=== PATIENT | female | born 1995 | race Two or more races ===

== ENCOUNTER 2025-05-21 14:58 | Emergency (ER) | payer MEDICAID, OTHER ==
[~2025-05-21] VITALS: Ht 152.4 cm; Wt 68.1 kg
--- NOTE | 2025-05-21 15:45 | ED.PDOC ---
History of Present Illness HPI Comments 29-year-old female with a past medical history of coarctation of aorta, hypertension and insulin dependent type 2 diabetes mellitus, has come to the ER with chief complaints of high blood pressure. Patient reports that she visited her PCP today morning for a follow up visit regarding her diabetes but was told upon arrival that her blood pressure was very high and to visit the ER. On inquiry, patient states that she was told her first BP reading was 176/90 mmHg, but was not told the second reading, just that it was higher than the first and to visit the ER. On inquiry, patient states that she has had a occipital headache since yesterday, 02/21 in intensity, nonradiating with no aggravating or relieving factors. On inquiry patient also states that she did not take her blood pressure medication amlodipine 10 mg and lisinopril 40 mg yesterday evening as she forgot and has not taken the medication today either. She denies any blurry vision, dizziness, shortness of breath, ringing of ears, chest pain, nausea, vomiting, urinary symptoms or any stressors at home or work. On arrival, blood pressure was 178/107 mmHg. Chief Complaint: High Blood Pressure Time Seen by MD: 15:05 Reviewed Notes: Medications, Allergies Allergies: Coded Allergies: NO KNOWN ALLERGIES (Unverified , 05/21/25) Information Source: Patient Mode of Arrival: Ambulatory Severity: Mild Timing: Hours Duration: Since onset Prehospital treatment: None Past Medical History PAST MEDICAL HISTORY: DM, HTN Past Medical History (Other): Coarctation of aorta Surgical History (Other): Surgery for coarctation of aorta, stent placed RN HYPERBARIC History: Denies all RN HYPERBARIC Hx Family History Family History: Reviewed,noncontributory to illness Social History Smoker: Non-Smoker Alcohol: Denies ETOH Use Drugs: Denies Drug Use Lives In: Home Constitutional: reports: others (Occipital Headache); denies: chills, diaphoresis, fatigue, fever, malaise, sweats, weakness EENTM: denies: blurred vision, double vision, ear bleeding, ear discharge, ear drainage, ear pain, ear ringing, eye pain, eye redness, hearing loss, mouth p ain, mouth swelling, nasal discharge, nose bleeding, nose congestion, nose pain, photophobia, tearing, throat pain, throat swelling, voice changes, others Respiratory: denies: cough, hemoptysis, orthopnea, SOB at rest, shortness of br eath, SOB with excertion, stridor, wheezing, others Cardiovascular: denies: chest pain, dizzy spells, diaphoresis, Dyspnea on exertion, edema, irregular heart beat, left arm pain, lightheadedness, palpitations, PND, syncope, others Gastrointestinal: denies: abdomen distended, abdominal pain, blood streaked bowels, constipated, diarrhea, dysphagia, difficulty swallowing, hematemesis, melena, nausea, poor appetite, poor fluid intake, rectal bleeding, rectal pain, vomiting, others Genitourinary: denies: abnormal vagina bleeding, burning, dyspareunia, dysuria, flank pain, frequency, hematuria, incontinence, pain, , vagina discharge, urgency, others Neurological: denies: dizziness, fainting, headache, left sided numbness, left sided weakness, numbness, paresthesia, pre-existing deficit, right sided numbness, right sided weakness, seizure, speech problems, tingling, tremors, weakness, others Musculoskeletal: denies: back pain, gout, joint pain, joint swelling, muscle pain, muscle stiffness, neck pain, others Integumetry: denies: bruises, change in color, change in hair/nails, dryness, laceration, lesions, lumps, rash, wounds, others Allergic/Immunocompromised: denies: Difficulty Healing, Frequent Infections, Hives, Itching, others Hematologic/Lymphatic: denies: anemia, blood clots, easy bleeding, easy bruising, swollen glands, others Endocrine: denies: excessive hunger, excessive sweating, excessive thirst, excessive urination, flushing, intolerance to cold, intolerance to heat, unexplained weight gain, unexplained weight loss, others Psychiatric: denies: anxiety, bipolar disorder, depression, hopeless, panic disorder, schizophrenia, sleepless, suicidal, others Physical Exam General Appearance: Normal HEENT: Normal ENT Inspection Neck: Full Range of Motion, Non-Tender, Normal Respiratory: No Accessory Muscle Use, No Respiratory Distress, Normal Breath Sounds, Other (No rhonchi, stridor or wheezing heard) Cardiovascular: No Edema, No JVD, No Murmur, Tachycardia Breast Exam: Deferred Gastrointestinal: No Organomegaly, Non Tender, No Pulsatile Mass, Normal Bowel Sounds Genitalia: Deferred Pelvic: Deferred Rectal: Deferred Extremities: No calf tenderness, Normal inspection, Normal range of motion, Non-tender, No pedal edema Neurologic: Alert, No Motor Deficits, No Sensory Deficits Cerebellar Function: Normal Reflexes: Normal Skin: Normal Color Lymphatic: Other (No cervical lymphadenopathy) Was a procedure done? Was a procedure done?: No Differential Dx Considerations may include: Hypertension, tension headache X-Ray, Labs, Meds, VS Vital Signs Date Time Temp Pulse Resp B/P (MAP) Pulse Ox O2 Delivery O2 Flow Rate FiO2 05/21/25 16:57 140/78 05/21/25 16:49 91 16 140/78 (98) 98 05/21/25 16:09 156/103 05/21/25 16:02 98.8 98 16 156/103 (120) 96 98.8 05/21/25 16:02 Room Air* 0 21 05/21/25 14:59 98.7 98 16 178/107 98 98.7 Lab Test 05/21/25 16:46 05/21/25 15:35 Range/Units POC Glucose 357 H 70-106 mg/dl White Blood Count 8.0 4.4-10.8 10^3/uL Red Blood Count 4.59 4.0-5.20 10^6/uL Hemoglobin 13.4 12.2-16.2 g/dL Hematocrit 37.4 36.0-46.0 % Mean Corpuscular Volume 81.5 80.0-100.0 fL Mean Corpuscular Hemoglobin 29.2 28.0-32.0 pg Mean Corpuscular Hemoglobin Concent 35.8 32.0-36.0 g/dL Red Cell Distribution Width 12.2 11.8-14.3 % Platelet Count 379 140-450 10^3/uL Mean Platelet Volume 6.8 L 6.9-10.8 fL Neutrophils (%) (Auto) 61.1 37.0-80.0 % Lymphocytes (%) (Auto) 31.5 10.0-50.0 % Monocytes (%) (Auto) 3.3 0.0-12.0 % Eosinophils (%) (Auto) 3.3 0.0-7.0 % Basophils (%) (Auto) 0.8 0.0-2.0 % Neutrophils # (Auto) 4.9 1.6-8.6 10 ^3/uL Lymphocytes # (Auto) 2.5 0.4-5.4 10 ^3/uL Monocytes # (Auto) 0.3 0-1.3 10 ^3/uL Eosinophils # (Auto) 0.3 0-0.8 10 ^3/uL Basophils # (Auto) 0.1 0-0.2 10 ^3/uL Nucleated Red Blood Cells 0.0 % Sodium Level 135 L 136-145 mmol/L Potassium Level 4.1 3.5-5.1 mmol/L Chloride Level 101 98-107 mmol/L Carbon Dioxide Level 26 20-31 mmol/L Anion Gap 8 5-15 Blood Urea Nitrogen 25 H 9-23 mg/dL Creatinine 0.81 0.550-1.02 mg/dL Glomerular Filtration Rate Calc 99 >90 mL/min BUN/Creatinine Ratio 30.9 H 10.0-20.0 Serum Glucose 343 H 74-106 mg/dL Calcium Level 8.9 8.7-10.4 mg/dL Current Medications Medications (Trade) Dose Ordered Sig/Nathan Route Start Time Stop Time Status Last Admin Clonidine HCl (Catapres Tablet) 0.1 mg ONCE ONCE PO 05/21/25 15:30 05/21/25 15:33 DC 05/21/25 16:09 Sodium Chloride 1,000 ml @ 1,000 mls/hr Q1H ONCE IV 05/21/25 16:15 05/21/25 17:14 05/21/25 17:00 Time of 1ST Reevaluation: 17:30 Reevaluation 1ST: Improved Patient Education/Counseling: Diagnosis, Treatment Family Education/Counseling: No Family Present Comments Patient came in with chief complaints of high blood pressure, initial BP on arrival was 178/107 mmHg. Clonidine 0.1 mg was given. CBC and BMP within normal limits, serum glucose was high at 343. Patient was given 10 units of insulin and 1 L of 0.9% NS. EKG shows normal sinus rhythm. Patient reported feeling better, is stable and can be discharged. We have advised her to follow up with her primary care physician. SEPSIS Sepsis Screen Date sepsis recognized/suspect: May 21, 2025 Time Sepsis recognized/suspect: 1458 Recent Procedure: No On Antibiotic Therapy: No Respiratory Rate >20: No Heart Rate >90: Yes Temp<36 C (96.8 F) or >38.3 C: No SBP <90 or MAP <65 mmHG: No New Acute Mental Status Change: No Is the patient on CPAP, BIPAP,: No Physician Orders Electrocardigram (05/21/25 15:24) Sodium Chloride 0.9% (05/21/25 16:15) Vital Signs Date Time Temp Pulse Resp B/P (MAP) Pulse Ox O2 Delivery O2 Flow Rate FiO2 05/21/25 16:57 140/78 05/21/25 16:49 91 16 140/78 (98) 98 05/21/25 16:09 156/103 05/21/25 16:02 98.8 98 16 156/103 (120) 96 98.8 05/21/25 16:02 Room Air* 0 21 05/21/25 14:59 98.7 98 16 178/107 98 98.7 Laboratory Tests Test 05/21/25 15:35 White Blood Count 8.0 10^3/uL (4.4-10.8) Medications Medications Dose Ordered Sig/Nathan Route Start Time Stop Time Status Last Admin Dose Admin Clonidine HCl 0.1 mg ONCE ONCE PO 05/21/25 15:30 05/21/25 15:33 DC 05/21/25 16:09 Sodium Chloride 1,000 ml @ 1,000 mls/hr Q1H ONCE IV 05/21/25 16:15 05/21/25 17:14 05/21/25 17:00 Departure 1 Departure Time of Disposition: 17:40 Impression: Primary Impression: Hypertension Additional Impression: Hyperglycemia Disposition: 01 HOME / SELF CARE / HOMELESS Condition: Stable Discharged With: Self Critical Care Note Critical Care Time?: No Stability Stability form required: No Heart Score Heart Score: Heart Score Response (Comments) Value History N/A 0 EKG N/A 0 Age N/A 0 Risk Factors N/A 0 Troponin N/A 0 Total 0 JAMIA ESCOBAR RESIDENT May 21, 2025 15:44
[2025-05-21 15:58] LABS: Chloride 101 mmol/L (98-107); Hematocrit 37.4 % (36.0-46.0); Hemoglobin 13.4 g/dL (12.2-16.2); Mean Corpuscular Hemoglobin 29.2 pg (28.0-32.0); Mean Corpuscular Volume 81.5 fL (80.0-100.0); Nucleated Red Blood Cells % 0.0 %; Potassium 4.1 mmol/L (3.5-5.1)
[2025-05-21 15:59] LABS: Anion Gap 8 (5-15); Calcium 8.9 mg/dL (8.7-10.4); Carbon Dioxide 26 mmol/L (20-31); Sodium 135 mmol/L (136-145)
[2025-05-21 16:04] LABS: BUN/Creatinine Ratio 30.9 (10.0-20.0); Blood Urea Nitrogen 25 mg/dL (9-23); Glucose 343 mg/dL (74-106)
[2025-05-21] MEDS: SODIUM CHLORIDE 0.9% 1,000 ML IV ONE (17:00)
[2025-05-21] MEDS: INSULIN LISPRO (HUMAN) 100 UNITS/ML ML SC ONE (17:22)
[2025-05-21 18:23] VITALS: BP 163/90; PULSE 94; RESP 16; TEMP 98.4; O2SAT 97
== END 2025-05-21 18:53 | disposition home or self-care (01) ==
LOC: ER 14:58
DX: I10 Essential (primary) hypertension (principal); E11.65 Type 2 diabetes mellitus with hyperglycemia; Z79.4 Long term (current) use of insulin
CPT/HCPCS: 36415; 80048; 82947; 85025; 96360; 96361; 99284; J1815; J7030; 82962